=== PATIENT | male | born 1990 | race Caucasian/White ===

== ENCOUNTER 2022-07-05 12:27 | Emergency (ER) | payer BC ==
[2022-07-05 12:58] VITALS: BP 110/69; PULSE 51; RESP 18; TEMP 97.4; BMI 50.5
[2022-07-05 14:14] LABS: BASO % 0.8 % (0-2.0); EOS % 2.7 % (0-4.5); HEMATOCRIT 40.6 % (35.4-49); HEMOGLOBIN 13.6 GM/dL (11.7-16.9); LYMPH % 31.7 % (8-40); MCH 29.7 pg (25.7-33.7); MCHC 33.5 g/dl (32.0-35.9); MEAN CELL VOLUME 88.8 fl (80-96); MEAN PLT VOLUME 7.8 fl (7.5-11.1); MONO % 7.4 % (3.8-10.2); NEUT % 57.4 % (42.8-82.8); PLATELET COUNT 225 10^3/uL (134-434); RBC 4.58 M/mm3 (4.00-5.60); RDW 12.9 % (11.9-15.9); WHITE BLOOD COUNT 3.7 K/mm3 (4.0-10.0)
[2022-07-05 14:23] LABS: INR 1.12 (0.83-1.09); PROTHROMBIN TIME (PATIENT) 12.9 SEC (9.7-13.0)
[2022-07-05 14:36] LABS: CALCIUM 9.2 mg/dL (8.5-10.1)
[2022-07-05 14:38] LABS: ALBUMIN 4.2 g/dl (3.4-5.0); BLOOD UREA NITROGEN 15.4 mg/dL (7-18)
[2022-07-05 14:42] LABS: TOT PROT 7.4 g/dl (6.4-8.2)
[2022-07-05 14:45] LABS: BILIRUBIN,TOTAL 0.5 mg/dL (0.2-1); CREATININE 1.1 mg/dL (0.55-1.3)
== END 2022-07-05 15:21 | disposition home or self-care (01) ==
LOC: JER 12:27
DX: R07.9 Chest pain, unspecified (principal)
CPT/HCPCS: 36415; 71046-TC-FY; 80053; 84484; 85025; 85610; 93005; 93010; 99284-25